=== PATIENT | female | born 1970 | race Asian ===

== ENCOUNTER 2017-01-24 04:57 | Outpatient (CLI) | payer OTHER, MEDICAID ==
[2017-01-24] VITALS (7 sets, daily range): BP systolic 100–141; BP diastolic 57–78; PULSE 66–82; TEMP 98.1–98.2
[~2017-01-24] VITALS: Ht 160 cm; Wt 74.1 kg
[2017-01-24] MEDS ORDERED: PRENATAL (05:34)
== END 2017-01-24 08:36 | disposition critical access hospital (66) ==
LOC: LDRO 04:57 → LDR 05:04 → LDRO 08:36
DX: O42.92 Full-term premature rupture of membranes, unspecified as to length of time between rupture and onset of labor (principal); Z3A.38 38 weeks gestation of pregnancy
CPT/HCPCS: OP; J7030

== ENCOUNTER → 2018-11-27 | Outpatient (CLI) | payer BC ==
[~2018-11-27] MED LIST: PRENATAL
== END ==
LOC: MC.RAD 11:36
DX: Z12.31 Encounter for screening mammogram for malignant neoplasm of breast (principal)